=== PATIENT | female | born 1970 | race Caucasian/White ===

== ENCOUNTER 2016-11-22 12:47 | Emergency (ER) | payer BC ==
[2016-11-22 13:03] VITALS: BP 149/71
[2016-11-22] MEDS ORDERED: Penicillin VK TAB* 250 MG PO ONE (13:14)
--- NOTE | 2016-11-22 13:29 | UC ---
Dental HPI - HPI Summary HPI Summary: 46 yo female with dental pain x days now with facial swelling no f/c - History of Current Complaint Chief Complaint: UCDentalProblem Stated Complaint: DENTAL ABSCESS Time Seen by Provider: 11/22/16 13:07 Hx Obtained From: Patient Hx Last Menstrual Period: 6 months ago Onset/Duration: Sudden Onset, Lasting Days Severity: Moderate Pain Intensity: 5 - severe last pm Pain Scale Used: 0-10 Numeric Aggravating: Chewing Alleviating: OTC Meds Related History: Previous Dental Care on Same Tooth, Swelling - Allergies/Home Medications Allergies/Adverse Reactions: Allergies Allergy/AdvReac Type Severity Reaction Status Date / Time No Known Allergies Allergy Verified 11/22/16 13:02 Home Medications: Home Medications Ibuprofen [Advil] 800 mg PO Q6HR PRN 11/22/16 [History Confirmed 11/22/16] PMH/Surg Hx/FS Hx/Imm Hx Previously Healthy: Yes - Surgical History Surgical History: None Surgery Procedure, Year, and Place: Gastric-bypass 2008 - Social History Alcohol Use: Rare Substance Use Type: None Smoking Status (MU): Never Smoked Tobacco Household Exposure Type: Cigarettes Review of Systems Constitutional: Negative Skin: Negative Eyes: Negative ENT: Dental Pain Respiratory: Negative Cardiovascular: Negative Gastrointestinal: Negative Genitourinary: Negative Motor: Negative Neurovascular: Negative Musculoskeletal: Negative Neurological: Negative Psychological: Negative All Other Systems Reviewed And Are Negative: Yes Physical Exam Triage Information Reviewed: Yes Appearance: Well-Appearing, No Pain Distress, Well-Nourished Vital Signs: Initial Vital Signs Temp 98.2 F 11/22/16 12:58 Pulse 50 11/22/16 12:58 Resp 14 11/22/16 12:58 BP 149/71 11/22/16 12:58 Pulse Ox 100 11/22/16 12:58 Eyes: Positive: Conjunctiva Clear ENT: Positive: Hearing grossly normal, TMs normal. Negative: Nasal congestion, Nasal drainage, Tonsillar exudate, Trismus, Muffled/hoarse voice Dental: Positive: Abscess @, Other: - see image Neck: Positive: Supple, Nontender, No Lymphadenopathy Respiratory: Positive: Lungs clear, Normal breath sounds, No respiratory distress Cardiovascular: Positive: RRR, No Murmur, Pulses Normal Musculoskeletal: Positive: No Edema Neurological: Positive: Alert Psychological Exam: Normal Skin Exam: Normal Dental Complaint Course/Dx - Differential Dx/Diagnosis Provider Diagnoses: dental abscess Discharge - Discharge Plan Condition: Stable Disposition: HOME Prescriptions: HYDROcodone/ACETAMIN 5-325 MG* [[place] 5-325 TAB*] 1 tab PO Q4H PRN #8 tab MDD 4 PRN Reason: Pain - Severe Ibuprofen TAB* [Motrin TAB*] 600 mg PO Q6H PRN #40 tab PRN Reason: Pain Penicillin VK TAB 500 MG(NF) [Penicillin VK 500 mg Tab(NF)] 500 mg PO QID #28 tab Patient Education Materials: Dental Abscess (ED) Referrals: Genia Drummond MD [Primary Care Provider] - Additional Instructions: to er for worsening symptoms recheck in 2 days if not better you need to have you dental problems seen by a dentist Images Dental: 1 - abscess/abysmal dentition
[2016-11-22] MEDS ORDERED: Albuterol 2.5 MG/3 ML NEB.SOL* (0.083%) INH ONE (13:32)
[2016-11-22] MEDS ORDERED: Ipratropium 0.5MG/2.5ML NEB* 0.5 MG/2.5 ML NEB.SOLN INH ONE (13:32)
== END 2016-11-22 13:31 | disposition home or self-care (01) ==
LOC: UCEAST 12:47
DX: K04.7 Periapical abscess without sinus (principal)
CPT/HCPCS: 99212; A9270-GY; G0463

== ENCOUNTER 2017-02-05 07:58 | Emergency (ER) | payer BC ==
[2017-02-05 08:17] VITALS: BP 129/63
[2017-02-05] MEDS ORDERED: Albuterol HFA INHALER* 8 gm MDI INH ONE (08:27)
--- NOTE | 2017-02-05 08:27 | UC ---
Respiratory Complaint HPI - HPI Summary HPI Summary: 47 yo female with 5 day hx of sore throat/productive cough /sinus pressure/fever /chills and intermittent wheezing Has use inhalers before no CP or SOB - History of Current Complaint Chief Complaint: UCGeneralIllness Stated Complaint: SORE THROAT Time Seen by Provider: 02/05/17 08:10 Hx Obtained From: Patient Hx Last Menstrual Period: 01/29/17 Onset/Duration: Gradual Onset, Lasting Days Timing: Constant Severity Initially: Mild Severity Currently: Moderate Pain Intensity: 3 Pain Scale Used: 0-10 Numeric Character: Cough: Productive Aggravating Factors: Nothing Alleviating Factors: Nothing Associated Signs And Symptoms: Positive: Dyspnea - at times while wheezing, Fever, Chills, Wheezing, Nasal Congestion, Sinus Discomfort - Allergies/Home Medications Allergies/Adverse Reactions: Allergies Allergy/AdvReac Type Severity Reaction Status Date / Time No Known Allergies Allergy Verified 02/05/17 08:05 PMH/Surg Hx/FS Hx/Imm Hx Previously Healthy: Yes - Surgical History Surgical History: Yes Surgery Procedure, Year, and Place: Gastric-bypass 2008 - Family History Known Family History: Positive: Hypertension, Respiratory Disease - Social History Alcohol Use: None Substance Use Type: None Smoking Status (MU): Never Smoked Tobacco Household Exposure Type: Cigarettes Review of Systems Constitutional: Fever, Chills Skin: Negative Eyes: Negative ENT: Sore Throat, Nasal Discharge, Sinus Congestion, Sinus Pain/Tenderness Respiratory: Shortness Of Breath - at times, Cough Cardiovascular: Negative Gastrointestinal: Negative Genitourinary: Negative Motor: Negative Neurovascular: Negative Musculoskeletal: Negative Neurological: Negative Psychological: Negative Is Patient Immunocompromised?: No All Other Systems Reviewed And Are Negative: Yes Physical Exam Triage Information Reviewed: Yes Appearance: Well-Appearing, No Pain Distress, Well-Nourished Vital Signs: Initial Vital Signs Temp 98.2 F 02/05/17 08:07 Pulse 53 02/05/17 08:07 Resp 16 02/05/17 08:07 BP 129/63 02/05/17 08:07 Pulse Ox 97 02/05/17 08:07 Vital Signs Reviewed: Yes Eyes: Positive: Conjunctiva Clear ENT: Positive: Hearing grossly normal, Pharynx normal, Nasal congestion, Nasal drainage, TMs normal. Negative: Tonsillar swelling, Tonsillar exudate, Trismus , Muffled/hoarse voice Neck: Positive: Supple, Nontender, No Lymphadenopathy Respiratory: Positive: No respiratory distress, No accessory muscle use, Wheezing - with forced expiration Cardiovascular: Positive: RRR, No Murmur Musculoskeletal: Positive: ROM Intact, No Edema Neurological Exam: Normal Neurological: Positive: Alert Psychological Exam: Normal UC Diagnostic Evaluation - Laboratory O2 Sat by Pulse Oximetry: 97 - normal/not hypoxic Respiratory Course/Dx - Differential Dx/Diagnosis Provider Diagnoses: acute brfonchitis Discharge - Discharge Plan Condition: Stable Disposition: HOME Prescriptions: Amoxicillin PO (*) [Amoxicillin 875 MG (*)] 875 mg PO BID #14 tab Prednisone [Deltasone] 40 mg PO DAILY #10 tab Patient Education Materials: Acute Bronchitis (ED) Referrals: Genia Drummond MD [Primary Care Provider] - Additional Instructions: return for new or worsening symptoms use inhaler as directed see your MD next week as planned
== END 2017-02-05 08:55 | disposition home or self-care (01) ==
LOC: UCEAST 07:58
DX: J20.9 Acute bronchitis, unspecified (principal)
CPT/HCPCS: 99212; A9270-GY; G0463

== ENCOUNTER 2018-06-25 14:38 | Emergency (ER) | payer BC ==
[2018-06-25 15:07] VITALS: BP 140/67
--- NOTE | 2018-06-25 16:11 | UC ---
General HPI - HPI Summary HPI Summary: Pleasant 48 yo female c/o frontal h/a since Thursday (today is Thursday), PCP (via telephone) started her on amoxicillin x 5 days script. However she feels that her symptoms have worsened, now has pain in R>L maxillary sinus area as well. + congested. No fever. No vis / aud changes. No sob / cp / gi issues. + poor dentition, she is hopeful to have her upper teeth taken out, but does not think it will be right away. Not sure if pain from dentition as well. She is concerned because normally if she has symptoms like this, the amoxil will help in the first few days. - History of Current Complaint Chief Complaint: UCGeneralIllness Stated Complaint: HEADACHE Time Seen by Provider: 06/25/18 15:24 Hx Obtained From: Patient Hx Last Menstrual Period: [address] [place] Pain Intensity: 8 - Allergy/Home Medications Allergies/Adverse Reactions: Allergies Allergy/AdvReac Type Severity Reaction Status Date / Time No Known Allergies Allergy Verified 06/25/18 15:07 Home Medications: Home Medications Acetaminop/Codeine 30 MG TAB* [Tylenol/Codeine 30 MG TAB*] 1 tab PO Q8H PRN 06/12 [History Confirmed 06/25/18] Propranolol TAB* [Inderal TAB*] 80 mg PO DAILY 06/25/18 [History Confirmed 06/25] PMH/Surg Hx/FS Hx/Imm Hx Previously Healthy: Yes - Surgical History Surgical History: Yes Surgery Procedure, Year, and Place: Gastric-bypass 2008 - Family History Known Family History: Positive: Hypertension, Respiratory Disease - Social History Alcohol Use: Occasionally Substance Use Type: None Smoking Status (MU): Never Smoked Tobacco Household Exposure Type: Cigarettes Review of Systems All Other Systems Reviewed And Are Negative: Yes Constitutional: Positive: Negative Skin: Positive: Negative Eyes: Positive: Negative ENT: Positive: Other - see hpi Respiratory: Positive: Negative Cardiovascular: Positive: Negative Gastrointestinal: Positive: Negative Genitourinary: Positive: Negative Motor: Positive: Negative Neurovascular: Positive: Negative Musculoskeletal: Positive: Negative Neurological: Positive: Negative Psychological: Positive: Negative Is Patient Immunocompromised?: No Physical Exam Triage Information Reviewed: Yes Appearance: Well-Nourished - sitting up, conversing easily and appropriately Vital Signs: Initial Vital Signs Temp 98.8 F 06/25/18 14:58 Pulse 57 06/25/18 14:58 Resp 16 06/25/18 14:58 BP 140/67 06/25/18 14:58 Pulse Ox 99 06/25/18 14:58 Vital Signs Reviewed: Yes Eye Exam: Normal ENT Exam: Other ENT: Positive: TM dull - tm dull au post pharynx benign + sinus tenderness to pressure frontal sinuses and maxillary sinus areas, particularly tender R maxillary sinus region Dental Exam: Other - Several caries, previous uatsdin, gums inflamed jonelle mid upper teeth. No jerry fluctuance. No TMJ tenderness reported with open / close jaw Neck exam: Normal Neck: Positive: Supple, Nontender, No Lymphadenopathy Respiratory Exam: Normal Respiratory: Positive: Chest non-tender, Lungs clear, Normal breath sounds, No respiratory distress, No accessory muscle use Cardiovascular Exam: Normal Cardiovascular: Positive: RRR, Pulses Normal, Brisk Capillary Refill Abdominal Exam: Normal Abdomen Description: Positive: Nontender Musculoskeletal Exam: Normal Neurological Exam: Normal - grossly nonfocal facial expressions grossly symmetric mmm Psychological Exam: Normal Skin Exam: Normal Course/Dx - Course Course Of Treatment: Reivewed coa /tx plan. Likely acute sinusitis, compromised by dentalgia. + gingivitis. No jerry purulence or focal swelling, but tender upper R teeth. Will switch to augmentin. Start chlorhexadine rinse. F/u PCP and dentist. Questions as posed answered to the best of my ability. - Diagnoses Provider Diagnosis: Sinusitis, Dental caries Discharge - Sign-Out/Discharge Documenting (check all that apply): Patient Departure All imaging exams completed and their final reports reviewed: No Studies - Discharge Plan Condition: Stable Disposition: HOME Prescriptions: Amoxicillin/Clavulanate TAB* [Augmentin TAB 875*] 875 mg PO BID #20 tab Chlorhexidine MW 0.12% 473ML* [Peridex Mouth Wash 0.12%*] 473 ml .SEE ORDER ACHS #1 btl Naproxen [Naproxen 500 mg tab] 500 mg PO Q12H PRN #30 tablet PRN Reason: Pain Patient Education Materials: Sinusitis (ED), Toothache (ED), Dry Mouth (ED) Forms: *Work Release Referrals: Sarah WILLSON,Stanislaw Osborne [Primary Care Provider] - Additional Instructions: Follow up dentist when able. Follow up with your primary care physican, per routine. Seek medical attention for worse or new problems. - Billing Disposition and Condition Condition: STABLE Disposition: Home
== END 2018-06-25 16:15 | disposition home or self-care (01) ==
LOC: UCEAST 14:38
DX: J32.9 Chronic sinusitis, unspecified (principal); K02.9 Dental caries, unspecified
CPT/HCPCS: 99212; G0463